=== PATIENT | male | born 1995 | race Two or more races ===

== ENCOUNTER 2019-02-08 09:29 | Emergency (ER) | payer MEDICAID ==
[~2019-02-08] VITALS: Ht 170.2 cm; Wt 67.1 kg
[2019-02-08] MEDS ORDERED: IV NORMAL SALINE 1000ML BAG 1,000 ML IV SCH (09:55)
--- NOTE | 2019-02-08 10:01 | PHYS DOC ---
Past Medical History Past Medical History: Kidney Stone Past Surgical History: No Surgical History Alcohol Use: None Drug Use: None Adult General Chief Complaint Chief Complaint: FLANK PAIN HPI HPI Patient is a 23 year old male who presents with complaining of abdominal and flank pain. Patient complaining of sudden onset of right lower quadrant pain since 6 AM as a constant and sharp pain with radiation to his back and rated his pain 8/10. Patient complaining of 3 episodes of vomiting and states she had darker colored urine and urinary frequency without dysuria. Patient states he had the same episodes of pain previously with his episodes of kidney stone that passed spontaneously. He denies recent dehydration and fever and chills. Review of Systems Review of Systems Constitutional: Denies fever or chills [] Eyes: Denies change in visual acuity, redness, or eye pain [] HENT: Denies nasal congestion or sore throat [] Respiratory: Denies cough or shortness of breath [] Cardiovascular: No additional information not addressed in HPI [] GI: Reports abdominal pain, nausea, vomiting, denies bloody stools or diarrhea [] : Denies dysuria, reports frequency and hematuria [] Musculoskeletal: Denies back pain or joint pain [] Integument: Denies rash or skin lesions [] Neurologic: Denies headache, focal weakness or sensory changes [] Endocrine: Denies polyuria or polydipsia [] All other systems were reviewed and found to be within normal limits, except as documented in this note. Current Medications Current Medications Current Medications Medications (Trade) Dose Ordered Sig/Krystina Start Time Stop Time Status Last Admin Dose Admin Fentanyl Citrate (Fentanyl 2ml Vial) 50 mcg 1X ONCE 02/08/19 11:15 02/08/19 11:16 DC 02/08/19 11:14 50 MCG Ketorolac Tromethamine (Toradol 30mg Vial) 30 mg 1X ONCE 02/08/19 10:30 02/08/19 10:31 DC 02/08/19 10:08 30 MG Ondansetron HCl (Zofran) 4 mg 1X ONCE 02/08/19 10:30 02/08/19 10:31 DC 02/08/19 10:07 4 MG Sodium Chloride 1,000 ml @ 1,000 mls/hr Q1H 02/08/19 09:55 02/08/19 10:54 DC 02/08/19 10:06 1,000 MLS/HR Allergies Allergies Allergies Coded Allergies Type Severity Reaction Last Updated Verified No Known Drug Allergies 02/08/19 No Physical Exam Physical Exam Constitutional: Well developed, well nourished, moderate distress, non-toxic appearance. [] HENT: Normocephalic, atraumatic, oropharynx dry. Eyes: PERRLA, EOMI, conjunctiva normal, no discharge. [] Neck: Normal range of motion, no tenderness, supple, no stridor. [] Cardiovascular:Heart rate regular rhythm, no murmur [] Lungs & Thorax: Bilateral breath sounds clear to auscultation [] Abdomen: Bowel sounds normal, soft, no tenderness, no masses, no pulsatile masses. [] Skin: Warm, dry, no erythema, no rash. [] Back: No tenderness, no CVA tenderness. [] Extremities: No tenderness, no cyanosis, no clubbing, ROM intact, no edema. [] Neurologic: Alert and oriented X 3, normal motor function, normal sensory funct ion, no focal deficits noted. [] Psychologic: Affect normal, judgement normal, mood normal. [] Current Patient Data Vital Signs Vital Signs Date Time Temp Pulse Resp B/P (MAP) Pulse Ox O2 Delivery O2 Flow Rate FiO2 02/08/19 11:14 18 100 Room Air 02/08/19 09:43 98.1 82 150/91 (110) 98.1 Lab Values Laboratory Tests Test 02/08/19 09:54 02/08/19 09:58 White Blood Count 14.1 x10^3/uL (4.0-11.0) H Red Blood Count 4.68 x10^6/uL (4.30-5.70) Hemoglobin 14.7 g/dL (13.0-17.5) Hematocrit 43.6 % (39.0-53.0) Mean Corpuscular Volume 93 fL (79-100) Mean Corpuscular Hemoglobin 31 pg (25-35) Mean Corpuscular Hemoglobin Concent 34 g/dL (31-37) Red Cell Distribution Width 14.4 % (11.5-14.5) Platelet Count 274 x10^3/uL (140-400) Neutrophils (%) (Auto) 89 % (31-73) H Lymphocytes (%) (Auto) 7 % (24-48) L Monocytes (%) (Auto) 4 % (0-9) Eosinophils (%) (Auto) 0 % (0-3) Basophils (%) (Auto) 0 % (0-3) Neutrophils # (Auto) 12.5 x10^3uL (1.8-7.7) H Lymphocytes # (Auto) 1.0 x10^3/uL (1.0-4.8) Monocytes # (Auto) 0.5 x10^3/uL (0.0-1.1) Eosinophils # (Auto) 0.0 x10^3/uL (0.0-0.7) Basophils # (Auto) 0.0 x10^3/uL (0.0-0.2) Sodium Level 138 mmol/L (136-145) Potassium Level 3.6 mmol/L (3.5-5.1) Chloride Level 104 mmol/L (98-107) Carbon Dioxide Level 22 mmol/L (21-32) Anion Gap 12 (6-14) Blood Urea Nitrogen 9 mg/dL (8-26) Creatinine 1.0 mg/dL (0.7-1.3) Estimated GFR (Cockcroft-Gault) 91.8 BUN/Creatinine Ratio 9 (6-20) Glucose Level 119 mg/dL (70-99) H Calcium Level 9.1 mg/dL (8.5-10.1) Total Bilirubin 0.2 mg/dL (0.2-1.0) Aspartate Amino Transferase (AST) 19 U/L (15-37) Alanine Aminotransferase (ALT) 37 U/L (16-63) Alkaline Phosphatase 109 U/L (46-116) Total Protein 7.8 g/dL (6.4-8.2) Albumin 4.3 g/dL (3.4-5.0) Albumin/Globulin Ratio 1.2 (1.0-1.7) Lipase 68 U/L (73-393) L Urine Collection Type Unknown Urine Color Domitila Urine Clarity Clear Urine pH 5.5 Urine Specific [place] 1.020 Urine Protein 30 mg/dL (NEG-TRACE) Urine Glucose (UA) Negative mg/dL (NEG) Urine Ketones (Stick) Negative mg/dL (NEG) Urine Blood Large (NEG) Urine Nitrite Negative (NEG) Urine Bilirubin Negative (NEG) Urine Urobilinogen Dipstick 0.2 mg/dL (0.2 mg/dL) Urine Leukocyte Esterase Small (NEG) Urine RBC Tntc /HPF (0-2) Urine WBC 5-10 /HPF (0-4) Urine Bacteria Few /HPF (0-FEW) Laboratory Tests 02/08/19 09:54 Laboratory Tests 02/08/19 09:54 EKG EKG [] Radiology/Procedures Radiology/Procedures [facility] [address] [place] [address] IMAGING REPORT Signed PATIENT: YAO HIGH ACCOUNT: [id number] : 1995 LOCATION: ER AGE: 23 SEX: M EXAM STATUS: REG ER ORD. PHYSICIAN: BRITTNEY KEY MD REASON: right lower and flank pain since this morning, history of kidney stones PROCEDURE: CT ABDOMEN PELVIS WO CONTRAST CT Abdomen and Pelvis without contrast History: Right flank pain since this morning, history of kidney stones Technique: Noncontrast CT imaging was performed of the abdomen and pelvis. Multiplanar images are reviewed. Exposure: One or more of the following individualized dose reduction techniques were utilized for this examination: 1. Automated exposure control 2. Adjustment of the mA and/or kV according to patient size 3. Use of iterative reconstruction technique. Comparison: None Findings: There is moderate right hydroureteronephrosis. There is a small 0.2 cm calculus near the right ureterovesical junction. There is a small 0.2 cm mid to superior right renal calculus. There is no left hydronephrosis or renal calculus. Accurate evaluation of abdominal visceral organs is limited without intravenous contrast. There is no obvious abnormality of the spleen, liver, or pancreas. Gallbladder is not seen. There is no adrenal nodularity. Accurate evaluation of bowel is limited without oral contrast. There is no significant free air, free fluid, bowel dilatation. Appendix caliber is upper limits of normal about 0.6 cm, no significant adjacent inflammatory-type change. There is bilateral L5 spondylolysis, negligible anterior spondylolisthesis L5-S1. Impression: 1. There is moderate right hydroureteronephrosis, small 0.2 cm calculus near the right ureterovesical junction. There is a small right renal calculus. 2. There is bilateral L5 spondylolysis, negligible anterior spondylolisthesis at L5-S1. Electronically signed by: Jj Khan MD (02/08/2019 10:31 AM) [id number] DICTATED and SIGNED BY: JJ KHAN MD DATE: 02/08/19 1031 Course & Med Decision Making Course & Med Decision Making Pertinent Labs and Imaging studies reviewed. (See chart for details) Evaluation of patient in ER showed 23-year-old male patient with history of kidney stone presented with right lower abdominal and flank pain since this morning with episodes of nausea and vomiting. Patient felt better with treatment with IV fluid, Toradol, Zofran and fentanyl. CT showed 2 mm stone right UVJ. [place] of town and was advised to follow-up with his urologist and increase fluid intake and strain all of his urine. Dragon Disclaimer Dragon Disclaimer This electronic medical record was generated, in whole or in part, using a voice recognition dictation system. Departure Departure Impression: Primary Impression: Renal colic on right side Additional Impressions: Ureterolithiasis Nephrolithiasis Disposition: HOME, SELF-CARE (at 1105) Condition: IMPROVED Referrals: UNKNOWN PCP NAME (PCP) Patient Instructions: Diet for Kidney Stones, Kidney Stones Additional Instructions: Drink plenty of liquids Follow-up with your primary care physician in 3-5 days Return to ER if not getting better Strain all of your urine Follow-up with your urologist in 2 or 3 days Scripts Ondansetron Hcl (ZOFRAN) 4 Mg Tablet 1 TAB PO PRN Q6-8HRS for nausea, #12 TAB Prov: BRITTNEY KEY MD 02/08/19 Hydrocodone/Apap 5-325 (NORCO 5-325 TABLET) 1 Each Tablet 1 TAB PO PRN Q6HRS PRN for PAIN, #10 TAB 0 Refills Prov: BRITTNEY KEY MD 02/08/19 Ibuprofen (IBUPROFEN) 600 Mg Tablet 600 MG PO PRN Q6HRS PRN for PAIN, #20 TAB take with food or milk Prov: BRITTNEY KEY MD 02/08/19 Tamsulosin Hcl (FLOMAX) 0.4 Mg Cap.er.24h 1 CAP PO DAILY, #14 CAP 0 Refills Prov: BRITTNEY KEY MD 02/08/19 Problem Qualifiers BRITTNEY KEY MD Feb 08, 2019 10:01
[2019-02-08 10:09] LABS: BILIRUBIN,URINE NEGATIVE (NEG); CLARITY,URINE CLEAR; COLOR,URINE AMBER; NITRITE,URINE NEGATIVE (NEG); PH,URINE 5.5; PROTEIN,URINE 30 mg/dL (NEG-TRACE); UROBILINOGEN,URINE 0.2 mg/dL (0.2 mg/dL)
[2019-02-08 10:10] LABS: BASO % 0 % (0-3); EOS % 0 % (0-3); HEMATOCRIT 43.6 % (39.0-53.0); HEMOGLOBIN 14.7 g/dL (13.0-17.5); LYMPH % 7 % (24-48); MEAN CORPUSCULAR HEMOGLOBIN 31 pg (25-35); MEAN CORPUSCULAR HGB CONC 34 g/dL (31-37); MEAN CORPUSCULAR VOLUME 93 fL (79-100); MONO # 0.5 x10^3/uL (0.0-1.1); MONO % 4 % (0-9); NEUT # 12.5 x10^3uL (1.8-7.7); NEUT % 89 % (31-73); PLATELET COUNT 274 x10^3/uL (140-400); RED BLOOD COUNT 4.68 x10^6/uL (4.30-5.70); RED CELL DISTRIBUTION WIDTH 14.4 % (11.5-14.5); WHITE BLOOD COUNT 14.1 x10^3/uL (4.0-11.0)
[2019-02-08 10:15] LABS: BACTERIA,URINE FEW /HPF (0-FEW); RBC,URINE TNTC /HPF (0-2)
[2019-02-08 10:20] LABS: CALCIUM 9.1 mg/dL (8.5-10.1); GFR 91.8; POTASSIUM 3.6 mmol/L (3.5-5.1)
[2019-02-08 10:28] LABS: ALBUMIN 4.3 g/dL (3.4-5.0); ALBUMIN/GLOBULIN RATIO 1.2 (1.0-1.7); TOTAL BILIRUBIN 0.2 mg/dL (0.2-1.0); TOTAL PROTEIN 7.8 g/dL (6.4-8.2)
[2019-02-08] MEDS ORDERED: KETOROLAC 30 MG/ML VIAL. IV ONE (10:30)
[2019-02-08] MEDS ORDERED: ONDANSETRON PF 4 MG/2 ML VIAL. IV ONE (10:30)
--- NOTE | 2019-02-08 10:34 | RAD ---
CT Abdomen and Pelvis without contrast History: Right flank pain since this morning, history of kidney stones Technique: Noncontrast CT imaging was performed of the abdomen and pelvis. Multiplanar images are reviewed. Exposure: One or more of the following individualized dose reduction techniques were utilized for this examination: 1. Automated exposure control 2. Adjustment of the mA and/or kV according to patient size 3. Use of iterative reconstruction technique. Comparison: None Findings: There is moderate right hydroureteronephrosis. There is a small 0.2 cm calculus near the right ureterovesical junction. There is a small 0.2 cm mid to superior right renal calculus. There is no left hydronephrosis or renal calculus. Accurate evaluation of abdominal visceral organs is limited without intravenous contrast. There is no obvious abnormality of the spleen, liver, or pancreas. Gallbladder is not seen. There is no adrenal nodularity. Accurate evaluation of bowel is limited without oral contrast. There is no significant free air, free fluid, bowel dilatation. Appendix caliber is upper limits of normal about 0.6 cm, no significant adjacent inflammatory-type change. There is bilateral L5 spondylolysis, negligible anterior spondylolisthesis L5-S1. Impression: 1. There is moderate right hydroureteronephrosis, small 0.2 cm calculus near the right ureterovesical junction. There is a small right renal calculus. 2. There is bilateral L5 spondylolysis, negligible anterior spondylolisthesis at L5-S1. Electronically signed by: Wilbert Sykes MD (02/08/2019 10:31 AM) [id number]
[2019-02-08 10:51] VITALS: BP 123/80
[2019-02-08] MEDS ORDERED: ONDA4TAB7 PO ×2 (11:08→11:31)
[2019-02-08] MEDS ORDERED: HYDR-3164 PO ×2 (11:08→11:31)
[2019-02-08] MEDS ORDERED: TAMS0.4C97 PO ×2 (11:08→11:31)
[2019-02-08] MEDS ORDERED: IBUP-1007 PO ×2 (11:08→11:31)
[2019-02-08] MEDS ORDERED: fentaNYL PF VIAL 100 MCG/2 ML VIAL IV ONE (11:15)
[2019-02-08 11:40] LABS: % BANDS 7 % (0-9); % EOS 1 % (0-5); % LYMPHS 7 % (24-48); % MONOS 3 % (0-10); % SEGS 82 % (35-66); PLT ESTIMATE ADEQUATE (ADEQUATE)
== END 2019-02-08 11:22 | disposition home or self-care (01) ==
LOC: ER 09:29
DX: N13.2 Hydronephrosis with renal and ureteral calculous obstruction (principal); R11.2 Nausea with vomiting, unspecified; M43.17 Spondylolisthesis, lumbosacral region
CPT/HCPCS: 36415; 74176; 80053; 81001; 83690; 85007; 85025; 87086; 96361; 96374; 96375; 99285; J1885; J2405; J3010; J7030